=== PATIENT | male | born 1990 | race Caucasian/White ===

== ENCOUNTER 2017-03-28 01:26 | Emergency (ER) | payer MEDICAID, OTHER ==
[~2017-03-28] VITALS: Ht 170.2 cm; Wt 61.4 kg
[2017-03-28] MEDS ORDERED: HydrOXYzine HCL 25 MG TABLET PO ONE (02:15)
[2017-03-28 03:07] VITALS: BP 128/80
== END 2017-03-28 03:10 | disposition home or self-care (01) ==
LOC: EMS 01:29
DX: F41.9 Anxiety disorder, unspecified (principal); F14.10 Cocaine abuse, uncomplicated; R00.0 Tachycardia, unspecified; F17.210 Nicotine dependence, cigarettes, uncomplicated
CPT/HCPCS: 93005; 99283; 99406

== ENCOUNTER 2021-11-26 04:34 | Emergency (ER) | payer OTHER ==
[~2021-11-26] VITALS: Ht 167.6 cm; Wt 63.6 kg
[2021-11-26] MEDS ORDERED: IBUPROFEN 600 MG TABLET PO ONE (05:00)
[2021-11-26] MEDS ORDERED: SODIUM CHLORIDE 0.9% 250 ML IRRIG SOLUTION BOTTLE IRRIG ONE (05:00)
[2021-11-26] MEDS ORDERED: PERTUSS(ACELL),DIPH,TET VAC/PF 0.5 ML SYRINGE IM. ONE (05:00)
[2021-11-26] MEDS ORDERED: CEPHALEXIN MONOHYDRATE 500 MG CAPSULE PO ONE (05:00)
[2021-11-26] MEDS ORDERED: CEPH-558 PO (05:27)
[2021-11-26 05:40] VITALS: BP 126/83
== END 2021-11-26 06:00 | disposition home or self-care (01) ==
LOC: EMS 04:36
DX: S51.811A Laceration without foreign body of right forearm, initial encounter (principal); S40.811A Abrasion of right upper arm, initial encounter; F17.210 Nicotine dependence, cigarettes, uncomplicated; F14.90 Cocaine use, unspecified, uncomplicated; V00.138A Other skateboard accident, initial encounter; Y93.51 Activity, roller skating (inline) and skateboarding; Y92.89 Other specified places as the place of occurrence of the external cause; Y99.8 Other external cause status
CPT/HCPCS: 90471; 90715; 99283

== ENCOUNTER 2025-03-22 23:25 | Inpatient (IN) | payer MEDICAID ==
[~2025-03-22] VITALS: Ht 167.6 cm; Wt 72.6 kg
[~2025-03-22 23:25] MED LIST: CEPH-558 PO
[2025-03-23] VITALS (10 sets, daily range): BP systolic 101–128; BP diastolic 65–92; PULSE 76–88; RESP 16–18; TEMP 97.3–99; O2SAT 96–99
[2025-03-23] MEDS ORDERED: ZOLPIDEM TARTRATE 10 MG TABLET PO PRN (03:00)
[2025-03-23] MEDS ORDERED: PETROLATUM,WHITE 28 GM JELLY TP PRN (06:15)
[2025-03-23] MEDS ORDERED: NICOTINE 14 MG/24 HOUR PATCH TD PRN (06:15)
[2025-03-23] MEDS ORDERED: ONDANSETRON 4 MG TABLET PO PRN (06:15)
[2025-03-23] MEDS ORDERED: LOPERAMIDE HCL 2 MG CAPSULE PO PRN (06:15)
[2025-03-23] MEDS ORDERED: DOCUSATE SODIUM 100 MG CAPSULE PO PRN (06:15)
[2025-03-23] MEDS ORDERED: GuaiFENesin/D-METHORPHAN [SUGAR-FREE] 200-20MG/10 ML SYRUP UDCUP PO PRN (06:15)
[2025-03-23] MEDS ORDERED: ACETAMINOPHEN 325 MG TABLET PO PRN (06:15)
[2025-03-23] MEDS ORDERED: MAGNESIUM HYDROXIDE SUSPENSION 30 ML UDCUP PO PRN (06:15)
[2025-03-23] MEDS ORDERED: IBUPROFEN 400 MG TABLET PO PRN (06:15)
[2025-03-23] MEDS ORDERED: MAG HYDROX/ALUMINUM HYD/SIMETH ES 30 ML SUSPENSION UDCUP PO PRN (06:15)
[2025-03-23] MEDS ORDERED: ALBUTEROL SULFATE HFA 90 MCG/PUFF 8 GM INHALER IH PRN (06:15)
[2025-03-23] MEDS: FOLIC ACID 1 MG TABLET PO SCH (10:35)
[2025-03-23] MEDS: SERTRALINE HCL 50 MG TABLET PO SCH (10:35)
[2025-03-23] MEDS: THIAMINE 100 MG TABLET PO SCH (10:35)
[2025-03-23] MEDS: CYANOCOBALAMIN 1,000 MCG/ML VIAL IM ONE (10:35)
[2025-03-23] MEDS: MULTIVITAMINS WITH MINERALS, THERAPEUTIC TABLET PO SCH (10:35)
[2025-03-24 05:08] LABS: HEPATITIS C AB (EIA) Non Reactive (Non Reactive)
[2025-03-24 05:37] VITALS: BP 128/88; PULSE 79; RESP 18; TEMP 97.3; O2SAT 98
[2025-03-24 08:13] VITALS: BP 111/84; PULSE 61; RESP 17; TEMP 97.3; O2SAT 99
[2025-03-24 08:29] LABS: PLATELET COUNT (AUTO) 305 K/uL (150-450); RED BLOOD CELL COUNT(AUTO) 4.50 MIL/uL (4.50-5.90); RED CELL DISTRIBUTION WIDTH 13.4 % (11.5-14.5); WHITE BLOOD COUNT (AUTO) 5.2 K/uL (4.5-11.0)
[2025-03-24 08:38] LABS: ALCOHOL, BLOOD (SERUM) < 3 mg/dL (0-10)
[2025-03-24 09:04] LABS: ASPARTATE AMINOTRANSFERASE 61 U/L (15-37); CALCIUM, TOTAL 8.5 mg/dL (8.8-10.5); CHOL/HDL RATIO 2.5 (4.2-7.3); CREATININE 0.84 mg/dL (0.60-1.30); GLOMERULAR FILTR. RATE CALC > 60 mL/min (>60); GLUCOSE,RANDOM 76 mg/dL (70-110); LDL CHOL (CALC.) 99 mg/dL (0-130); SODIUM SERUM 140 mmol/L (136-145); TOTAL PROTEIN, SERUM 6.2 g/dL (6.4-8.2); UREA NITROGEN, BLOOD 16 mg/dL (7-18)
[2025-03-24 09:35] LABS: APPEARANCE,URINE TURBID (CLEAR); GLUCOSE, URINE (UA) NEGATIVE (NEGATIVE); LEUKOCYTE ESTERASE ,URINE NEGATIVE (NEGATIVE); NITRATE,URINE NEGATIVE (NEGATIVE); OCCULT BLOOD,URINE NEGATIVE (NEGATIVE); SPECIFIC GRAVITIY, URINE 1.030 (1.003-1.030)
[2025-03-24 10:07] LABS: AMORPHOUS SEDIMENT,UR Many /LPF (None Seen)
[2025-03-24 10:08] VITALS: BP 111/84; PULSE 61; RESP 17; TEMP 97.3; O2SAT 96
[2025-03-24 20:17] VITALS: BP 112/78; PULSE 79; RESP 18; TEMP 97.8; O2SAT 99
[2025-03-25 08:34] VITALS: BP 114/82; PULSE 60; RESP 16; TEMP 97.9; O2SAT 99
[2025-03-25 13:01] VITALS: BP 113/79; PULSE 83; RESP 18; O2SAT 99
[2025-03-25 20:07] VITALS: BP 112/84; PULSE 86; RESP 18; TEMP 97.5; O2SAT 96
[2025-03-26 08:29] VITALS: BP 112/90; PULSE 73; RESP 17; TEMP 97.7; O2SAT 99
[2025-03-26 20:08] VITALS: BP 111/83; PULSE 75; RESP 18; TEMP 97.6; O2SAT 100
[2025-03-27 08:16] VITALS: BP 112/72; PULSE 61; RESP 17; TEMP 97.9; O2SAT 97
[2025-03-27] MEDS ORDERED: SERT-439 PO (19:13)
[2025-03-27 20:08] VITALS: BP 119/80; PULSE 75; RESP 17; TEMP 97.5; O2SAT 98
[2025-03-28 08:22] VITALS: BP 116/73; PULSE 64; RESP 19; TEMP 98.2; O2SAT 98
== END 2025-03-28 12:26 | disposition home or self-care (01) | DRG 751 ==
LOC: B2S 03-23 03:03
PROVIDERS: ADMIT Psychiatry & Neurology Psychiatry; ATTEND Psychiatry & Neurology Psychiatry
PROC: GZHZZZZ Group Psychotherapy (ICD-10-PCS; principal; 2025-03-23)
DX: F33.2 Major depressive disorder, recurrent severe without psychotic features (principal); R45.851 Suicidal ideations; E66.9 Obesity, unspecified; F10.10 Alcohol abuse, uncomplicated; F41.9 Anxiety disorder, unspecified; G47.00 Insomnia, unspecified; Y90.9 Presence of alcohol in blood, level not specified; Z20.822 Contact with and (suspected) exposure to COVID-19; Z68.25 Body mass index [BMI] 25.0-25.9, adult; Z79.899 Other long term (current) drug therapy
CPT/HCPCS: 80053; 80061; 81001; 83036; 84436; 84443; 85025; 86803; 87086; 87340; G0480; J3420